=== PATIENT | male | born 1980 | race Caucasian/White ===

== ENCOUNTER 2016-11-28 13:52 | Emergency (ER) | payer MEDICARE ==
[2016-11-28 15:59] LABS: HEMOGLOBIN 14.9 gm/dl (14.0-17.5); RED BLOOD COUNT 4.93 M/UL (4.20-5.50); WHITE BLOOD COUNT 8.4 K/UL (4.5-11.0)
[2016-11-28 16:17] LABS: BUN/CREATININE RATIO 8 (0-10)
== END 2016-11-28 17:42 | disposition home or self-care (01) ==
LOC: ER1 13:52
PROVIDERS: Emergency Medicine
DX: R53.81 Other malaise (principal); I10 Essential (primary) hypertension; E78.5 Hyperlipidemia, unspecified; F41.9 Anxiety disorder, unspecified; J45.909 Unspecified asthma, uncomplicated; F17.290 Nicotine dependence, other tobacco product, uncomplicated
CPT/HCPCS: 36415; 71010; 80053; 82550; 82553; 82962; 83874; 84484; 85025; 99284; J7030

== ENCOUNTER → 2020-11-30 | Outpatient (CLI) | payer OTHER ==
[~2020-11-30] MED LIST: ASMANEX HFA13 GM INH; ATORVASTATIN CA40 MG PO; IMDUR ER TAB 3030 MG PO; NITROSTAT0.4 MG SL; PRINIVIL20 MG PO; TAMIFLU 75 MG C75 MG GT; TENORMIN 25 MG25 MG PO; TRAZODONE HCL100 MG PO; VENTOLIN HFA 66.7 GM INH
== END ==
LOC: CATH 09:23
DX: R55 Syncope and collapse (principal)

== ENCOUNTER → 2021-02-01 | Outpatient (CLI) | payer OTHER | LOC: HEART 5 12-14 08:00 → EXRD 12-14 08:00 → HEART 5 12-14 08:30 → EXRD 12-14 10:30 → HEART 5 07:34 | DX: R55 Syncope and collapse (principal); R07.9 Chest pain, unspecified | CPT/HCPCS: 78452; 93306; 93880; A9502; J2785 ==

== ENCOUNTER → 2021-07-26 | Outpatient (CLI) | payer OTHER | LOC: EMI 12:57 | DX: G40.209 Localization-related (focal) (partial) symptomatic epilepsy and epileptic syndromes with complex partial seizures, not intractable, without status epilepticus (principal); R55 Syncope and collapse; R90.82 White matter disease, unspecified | CPT/HCPCS: 70551 ==